=== PATIENT | male | born 1975 | race Caucasian/White ===

== ENCOUNTER 2022-12-13 09:45 | Observation (INO) | payer OTHER, SELFPAY ==
[2022-12-13] MEDS ORDERED: fentaNYL 50 mcg/mL 1 mL Vial ONE ×2 (09:51→10:36)
[2022-12-13 10:06] LABS: #Basophils 0.1 thou/uL (0.0-0.2); #Eosinphils 0.2 thou/uL (0.0-0.7); #Monocytes 0.7 thou/uL (0.11-0.59); #Neutrophils 3.2 thou/uL (1.40-6.50); %Basophils 1.2 % (0.0-1.0); %Eosinophils 2.3 % (0.0-10.0); %Lymphocytes 39.3 % (21.0-51.0); %Monocytes 9.7 % (0.0-10.0); %Neutrophils 47.2 % (42.0-75.0); Hematocrit 46.8 % (42.0-52.0); Hemoglobin 15.8 g/dL (14.0-18.0); Mean Corpuscular HGB CONC 33.8 g/dL (32.0-36.0); Mean Corpuscular Hemoglobin 31.4 pg (27.0-31.0); Mean Platelet Volume 10.4 fL (7.4-10.4); Platelet Count 229 10x3/uL (130-400); RBC Distribution Width 12.5 % (11.5-14.5); Red Blood Cell (RBC) Count 5.03 mill/uL (4.70-6.10); White Blood Cell (WBC) Count 6.8 10x3/uL (4.8-10.8)
[2022-12-13] MEDS ORDERED: Iopamidol-370 76% 500 ML MDV (1 ML CHARGE) ONE (10:27)
[2022-12-13 10:29] LABS: ALT (SGPT) 16 U/L (8-55); AST (SGOT) 25 U/L (5-34); Albumin 4.4 g/dL (3.5-5.0); Alkaline Phosphatase 54 U/L (40-110); Anion Gap 14 mmol/L (10-20); BUN (Urea Nitrogen) 14 mg/dL (8.9-20.6); Bilirubin, Total 0.7 mg/dL (0.2-1.2); Calc. Creatinine Clearance 0 mL/min (70-130); Calcium 9.7 mg/dL (7.8-10.44); Carbon Dioxide 24 mmol/L (22-29); Chloride 103 mmol/L (98-107); Estimated GFR 68; Globulin 2.9 g/dL (2.4-3.5); Glucose 93 mg/dL (70-105); Potassium 4.2 mmol/L (3.5-5.1); Protein, Total 7.3 g/dL (6.0-8.3); Sodium 137 mmol/L (136-145)
[2022-12-13] MEDS ORDERED: EPINEPHrine 1 MG/ML AMP ONE (11:03)
[2022-12-13] MEDS ORDERED: Bupivacaine PF 0.5% 30 ML VIAL ONE (11:03)
[2022-12-13] MEDS ORDERED: Midazolam HCl 2 mg/2 ml Vial ONE ×2 (11:15→12:11)
[2022-12-13] MEDS ORDERED: fentaNYL PF 100 MCG/2 ML SYRINGE ONE (11:15)
[2022-12-13] MEDS ORDERED: HYDROmorphone 0.5 MG/0.5 ML SYRINGE ONE (11:16)
[2022-12-13] MEDS ORDERED: TETANUS, DIPHTHERIA TOX,ADULT (TDVAX) 0.5 ML VIAL IM ONE (11:24)
[2022-12-13] MEDS ORDERED: Morphine 2 MG/ML VIAL SLOW IVP PRN (11:24)
[2022-12-13] MEDS ORDERED: Ipratropium/Albuterol 3 ML NEB NEB PRN (11:24)
[2022-12-13] MEDS ORDERED: Dextrose 5% in Water 1,000 ML IV PRN (11:24)
[2022-12-13] MEDS ORDERED: hydrALAZINE 20 MG/ML VIAL SLOW IVP PRN (11:24)
[2022-12-13] MEDS ORDERED: Glucagon 1 MG/ML KIT IM PRN (11:24)
[2022-12-13] MEDS ORDERED: Ondansetron ODT 4 MG TAB PO PRN (11:24)
[2022-12-13] MEDS ORDERED: Dextrose 50% Abboject 50 ML SYRINGE SLOW IVP PRN (11:24)
[2022-12-13] MEDS ORDERED: CEFAZOLIN 2 GM VIAL ONE (12:10)
[2022-12-13] MEDS ORDERED: Sodium Chloride 0.9% 100 ML ONE (12:10)
[2022-12-13] MEDS ORDERED: Rocuronium Bromide 10 MG/ML (10ML VIAL) ONE (12:14)
[2022-12-13] MEDS ORDERED: PROPOFOL 200 MG/20 ML VIAL ONE (12:14)
[2022-12-13] MEDS ORDERED: Succinylcholine 200 MG/10 ml SYRINGE FS ONE (12:14)
[2022-12-13] MEDS ORDERED: Lidocaine 1% PF 5 ML VIAL ONE (12:14)
[2022-12-13] MEDS ORDERED: Ondansetron PF 4 MG/2 ML Vial ONE ×2 (12:14→13:57)
[2022-12-13] MEDS ORDERED: Dexamethasone 20 MG/5 ML VIAL ONE (12:14)
[2022-12-13] MEDS ORDERED: HYDROmorphone 2 MG/ML VIAL ONE (12:38)
[2022-12-13] MEDS ORDERED: SUGAMMADEX SODIUM 200 MG/2 ML VIAL ONE (13:01)
[2022-12-13] MEDS ORDERED: HYDROmorphone 2 MG/ML VIAL SLOW IVP PRN (13:37)
[2022-12-13] MEDS ORDERED: Promethazine HCl 25 MG/ML VIAL IM PRN (13:37)
[2022-12-13] MEDS ORDERED: Ondansetron HCl/PF 4 MG/2 ML Vial IVP PRN (13:37)
[2022-12-13 14:38] VITALS: BMI 26.3
[2022-12-13] MEDS ORDERED: Scopolamine 1.5 mg/72 hour Patch TD SCH (15:00)
[2022-12-13] MEDS: Sodium Chloride 0.9% 1,000 ML IV SCH (18:47)
[2022-12-13] MEDS: Acetaminophen 325 MG TAB PO SCH ×2 (18:56→23:54)
[2022-12-13] MEDS: Famotidine 20 MG TAB PO SCH (20:13)
[2022-12-13] MEDS: traMADol HCl 50 MG TAB PO PRN (20:13)
[2022-12-13] MEDS ORDERED: traZODone HCl 50 MG TAB PO SCH (21:00)
[2022-12-14] MEDS: Sodium Chloride 0.9% 1,000 ML IV SCH (02:53)
[2022-12-14 05:28] LABS: #Monocytes 0.8 thou/uL (0.11-0.59); #Neutrophils 9.6 thou/uL (1.40-6.50); %Basophils 0.2 % (0.0-1.0); %Lymphocytes 11.3 % (21.0-51.0); %Neutrophils 81.2 % (42.0-75.0); Hematocrit 40.1 % (42.0-52.0); Hemoglobin 13.3 g/dL (14.0-18.0); Mean Corpuscular HGB CONC 33.2 g/dL (32.0-36.0); Mean Corpuscular Hemoglobin 30.6 pg (27.0-31.0); Mean Corpuscular Volume 92.4 fl (78.0-98.0); Mean Platelet Volume 10.4 fL (7.4-10.4); Platelet Count 216 10x3/uL (130-400); RBC Distribution Width 12.5 % (11.5-14.5); Red Blood Cell (RBC) Count 4.34 mill/uL (4.70-6.10); White Blood Cell (WBC) Count 11.8 10x3/uL (4.8-10.8)
[2022-12-14 05:53] LABS: Anion Gap 10 mmol/L (10-20); BUN (Urea Nitrogen) 9 mg/dL (8.9-20.6); Calc. Creatinine Clearance 138 mL/min (70-130); Carbon Dioxide 25 mmol/L (22-29); Chloride 107 mmol/L (98-107); Estimated GFR 108; Glucose 141 mg/dL (70-105); Potassium 4.3 mmol/L (3.5-5.1); Sodium 138 mmol/L (136-145)
[2022-12-14] MEDS: Acetaminophen 325 MG TAB PO SCH (06:14)
[2022-12-14] MEDS: traMADol HCl 50 MG TAB PO PRN (06:15)
[2022-12-14 08:00] VITALS: BP 111/71; TEMP 98
[2022-12-14] MEDS: Famotidine 20 MG TAB PO SCH (08:46)
== END 2022-12-14 11:28 | disposition home or self-care (01) ==
LOC: ERS 09:45 → SDC 11:50 → SURG A 11:51
PROVIDERS: ADMIT Surgery; ATTEND Surgery
PROC: 0PSJ04Z Reposition Left Radius with Internal Fixation Device, Open Approach (ICD-10-PCS; principal; 2022-12-13)
PROC: 0RSP0ZZ Reposition Left Wrist Joint, Open Approach (ICD-10-PCS; 2022-12-13)
DX: S52.572A Other intraarticular fracture of lower end of left radius, initial encounter for closed fracture (principal); S32.592A Other specified fracture of left pubis, initial encounter for closed fracture; S52.122A Displaced fracture of head of left radius, initial encounter for closed fracture; W55.29XA Other contact with cow, initial encounter
CPT/HCPCS: 36415; 36416; 70450; 71045; 71260; 72125; 74177; 80048; 80053; 85025; 90714; 96374; 96376; C1713; G0390; J0171; J1100; J1170; J2250; J2272; J2405; J2704; J3010; J3490; Q0162; Q9967; S0020